=== PATIENT | female | born 2000 | race Hispanic/Latino ===

== ENCOUNTER 2020-03-18 14:58 | Emergency (ER) | payer SELFPAY ==
--- NOTE | 2020-03-18 15:46 | EDPHYS ---
Physician Documentation [facility] Name: Rainer Luna Age: 20 yrs Sex: Female : 2000 Arrival Date: 03/18/2020 Time: 15:02 Bed 25 Private MD: ED Physician Kvng Stevenson HPI: 03/18 15:42 This 20 yrs old Female presents to ER via Ambulatory with complaints of jmm Laceration To Hand. 15:42 The patient has a laceration occurred at home. Onset: The symptoms/episode jmm began/occurred acutely, just prior to arrival. Associated signs and symptoms: Pertinent negatives: heavy bleeding, loss of consciousness, numbness distal to injury, suspected foreign body. This is a 20 year old female with no chronic medical conditions that presents to the ED with complaints of laceration to her right hand after accidently cutting her hand on a can lid. Denies other injury. . 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 - Social history:: Smoking status: Patient denies any tobacco usage or history of. ROS: 15:42 Constitutional: Negative for fever, chills, and weight loss, Cardiovascular: Negative jmm for chest pain, palpitations, and edema, Respiratory: Negative for shortness of breath, cough, wheezing, and pleuritic chest pain. 15:42 Skin: Positive for laceration(s). 15:42 All other systems are negative. Exam: 15:42 Constitutional: This is a well developed, well nourished patient who is awake, alert, jmm and in no acute distress. Head/Face: atraumatic. Eyes: EOMI, no conjunctival erythema appreciated ENT: Moist Mucus Membranes Neck: Trachea midline, Supple Chest/axilla: Normal chest wall appearance and motion. Cardiovascular: Regular rate and rhythm. No edema appreciated Respiratory: Normal respirations, no respiratory distress appreciated Abdomen/GI: Non distended, soft Back: Normal ROM 15:42 Skin: 2 cm laceration noted to the right hand. 15:42 Neuro: Orientation: is normal, Mentation: is normal, Memory: is normal. Vital Signs: 15:03 BP 131 / 71; Pulse 70; Resp 18; Temp 98.6; Pulse Ox 99% on R/A; Weight 65.77 kg (R); aj1 Height 5 ft. 3 in. (160.02 cm) (R); Pain 5/10; 15:03 Body Mass Index 25.69 (65.77 kg, 160.02 cm) aj1 Laceration: 15:42 Wound Repair of 2cm ( 0.8in ) subcutaneous laceration to heel of right hand. Distal jmm neuro/vascular/tendon intact. Anesthesia: Local anesthetic administered with 2 mls of 1% lidocaine. Wound prep: Moderate cleansing with betadine by me. Skin closed with 4 5-0 Prolene using simple sutures and sterile technique. Patient tolerated well. MDM: 15:15 Patient medically screened. [facility] 15:42 Data reviewed: vital signs, nurses notes. Counseling: I had a detailed discussion with [facility] the patient and/or guardian regarding: the historical points, exam findings, and any diagnostic results supporting the discharge/admit diagnosis, the need for outpatient follow up, to return to the emergency department if symptoms worsen or persist or if there are any questions or concerns that arise at home. ED course: Patient given wound infection return precautions. Patient understood and agrees with the plan of care. . Administered Medications: No medications were administered Disposition: 03/19 06:07 Co-signature as Attending Physician, Kvng Stevenson MD I agree with the assessment and [facility] plan of care. Disposition: 03/18/20 15:45 Discharged to Home. Impression: Laceration of the right hand. - Condition is Stable. - Discharge Instructions: Laceration Care, Adult. - Medication Reconciliation Form, Thank You Letter, Antibiotic Education, Prescription Opioid Use, Work release form form. - Follow up: Private Physician; When: 2 - 3 days; Reason: Recheck today's complaints, Continuance of care, Re-evaluation by your physician. Signatures: Ana Lilia Vaca RN RN aj1 Kvng Stevenson MD MD cha Mickail, Joel, PA PA jmm Williams, Irene, RN RN iw Corrections: (The following items were deleted from the chart) 03/18 16:18 15:45 03/18/2020 15:45 Discharged to Home. Impression: Laceration of the right hand. iw Condition is Stable. Forms are Medication Reconciliation Form, Thank You Letter, Antibiotic Education, Prescription Opioid Use. Follow up: Private Physician; When: 2 - 3 days; Reason: Recheck today's complaints, Continuance of care, Re-evaluation by your physician. shawn
--- NOTE | 2020-03-18 15:46 | ER ---
Nurse's Notes [facility] Name: Rainer Luna Age: 20 yrs Sex: Female : 2000 Arrival Date: 03/18/2020 Time: 15:02 Bed 25 Private MD: Diagnosis: Laceration of the right hand Presentation: 03/18 15:03 Chief complaint: Patient states: She cut her right palm on a aluminum can lid at 1500 aj1 today. Laceration noted to right palm not currently bleeding. Coronavirus screen: Client denies travel out of the [place] in the last 14 days. At this time, the client does not indicate any symptoms associated with coronavirus-19. Ebola Screen: Patient denies travel to an Ebola-affected area in the 21 days before illness onset. Complicating Factors: There are no complicating factors for this patient. Initial Sepsis Screen: Does the patient meet any 2 criteria? No. Patient's initial sepsis screen is negative. Does the patient have a suspected source of infection? No. Patient's initial sepsis screen is negative. Risk Assessment: Do you want to hurt yourself or someone else? Patient reports no desire to harm self or others. Onset of symptoms was March 18, 2020 at 15:00. 15:03 Method Of Arrival: Ambulatory aj1 15:03 Acuity: GEOFFREY 4 aj1 Triage Assessment: 15:10 General: Appears in no apparent distress. comfortable, Behavior is calm, cooperative, aj1 appropriate for age. Pain: Complains of pain in right hand Pain currently is 5 out of 10 on a pain scale. Neuro: Level of Consciousness is awake, alert, obeys commands. Cardiovascular: Patient's skin is warm and dry. Respiratory: Airway is patent Respiratory effort is even, unlabored, Respiratory pattern is regular, symmetrical. Injury Description: Laceration sustained to heel of right hand is bleeding no active bleeding noted. 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 - Social history:: Smoking status: Patient denies any tobacco usage or history of. Screenin:17 Abuse screen: Denies threats or abuse. Denies injuries from another. Nutritional iw screening: No deficits noted. Tuberculosis screening: No symptoms or risk factors identified. Fall Risk None identified. Assessment: 15:30 General: Appears in no apparent distress. Behavior is calm, cooperative. Pain: iw Complains of pain in right hand. Neuro: Level of Consciousness is awake, alert, obeys commands, Oriented to person, place, time, situation, Moves all extremities. Full function. Cardiovascular: Patient's skin is warm and dry. Musculoskeletal: Range of motion: intact in all extremities. Injury Description: Laceration sustained to heel of right hand is 0.5 to 2.5 cm long. Vital Signs: 15:03 BP 131 / 71; Pulse 70; Resp 18; Temp 98.6; Pulse Ox 99% on R/A; Weight 65.77 kg (R); aj1 Height 5 ft. 3 in. (160.02 cm) (R); Pain 5/10; 15:03 Body Mass Index 25.69 (65.77 kg, 160.02 cm) aj1 ED Course: 15:02 Patient arrived in ED. mr 15:10 Triage completed. aj1 15:10 Arm band placed on Patient placed in an exam room. [facility] 15:14 Teto Storey PA is PHCP. [facility] 15:14 Kvng Stevenson MD is Attending Physician. [facility] 16:00 Patient has correct armband on for positive identification. iw 16:10 Assist provider with laceration repair on heel of right hand that was between 2.6 to iw 7.5 cm using sutures. Set up tray. Performed by Teto HARTLEY Patient tolerated well. 16:14 Yadira Haji, AZEB is Primary Nurse. iw 16:17 Patient did not have IV access during this emergency room visit. iw Administered Medications: No medications were administered Outcome: 15:45 Discharge ordered by . [facility] 16:17 Discharged to home ambulatory, with family. iw 16:17 Condition: good 16:17 Discharge instructions given to patient, Instructed on discharge instructions, follow up and referral plans. Demonstrated understanding of instructions, follow-up care, medications. 16:18 Patient left the ED. iw Signatures: Ana Lilia Vaca RN RN aj1 Mickail, TetoODILIA pete Mary mr Yadira Haji, RN RN iw Corrections: (The following items were deleted from the chart) 03/19 07:55 03/18 16:20 Assist provider with laceration repair on heel of right hand that was iw between 2.6 to 7.5 cm using sutures. Set up tray. Performed by Teto HRATLEY Patient tolerated well. iw
[2020-03-18 16:24] VITALS: BP 131/71; TEMP 98.6; O2SAT 99
== END 2020-03-18 16:18 | disposition home or self-care (01) ==
LOC: ER 14:58
PROC: 0JQJ0ZZ Repair Right Hand Subcutaneous Tissue and Fascia, Open Approach (ICD-10-PCS; principal; 2020-03-18)
DX: S61.411A Laceration without foreign body of right hand, initial encounter (principal); W26.8XXA Contact with other sharp object(s), not elsewhere classified, initial encounter; Y93.9 Activity, unspecified; Y92.009 Unspecified place in unspecified non-institutional (private) residence as the place of occurrence of the external cause
CPT/HCPCS: 99283

== ENCOUNTER 2020-04-03 18:31 | Emergency (ER) | payer SELFPAY ==
--- NOTE | 2020-04-03 18:52 | ER ---
Nurse's Notes [facility] Name: Rainer Luna Age: 20 yrs Sex: Female : 2000 Arrival Date: 04/03/2020 Time: 18:33 Bed Waiting Private MD: Diagnosis: Encounter for removal of sutures Presentation: 04/03 18:36 Chief complaint: Patient states: Here for suture removal from palm of right hand. No ll1 fever, redness, or drainage. Coronavirus screen: Client denies travel out of the [place] in the last 14 days. At this time, the client does not indicate any symptoms associated with coronavirus-19. Ebola Screen: Patient denies travel to an Ebola-affected area in the 21 days before illness onset. Initial Sepsis Screen: Does the patient meet any 2 criteria? No. Patient's initial sepsis screen is negative. Does the patient have a suspected source of infection? Yes: Skin breakdown/wound. Risk Assessment: Do you want to hurt yourself or someone else? Patient reports no desire to harm self or others. Onset of symptoms was March 27, 2020. 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 - Social history:: Smoking status: Patient denies any tobacco usage or history of. Screenin:39 Abuse screen: Denies threats or abuse. Nutritional screening: No deficits noted. ll1 Tuberculosis screening: No symptoms or risk factors identified. Fall Risk None identified. Total Porter Fall Scale indicates No Risk (0-24 pts). Assessment: 18:39 General: Appears in no apparent distress. Behavior is calm, cooperative, appropriate ll1 for age. General: here for suture removal right hand.. Pain: Denies pain. Vital Signs: 18:36 BP 105 / 72; Pulse 62; Resp 16; Temp 97.8; Pulse Ox 97% ; Pain 0/10; ll1 ED Course: 18:33 Patient arrived in ED. ag5 18:33 Kvng Torres PA is PHCP. cp 18:33 Pk Schwarz MD is Attending Physician. cp 18:37 Triage completed. ll1 18:38 Arm band placed on. ll1 18:38 Removal of removed by Vernon Torres. steri strips placed. Tolerated procedure well. ll1 18:39 No provider procedures requiring assistance completed. Patient did not have IV access ll1 during this emergency room visit. 18:40 Patient has correct armband on for positive identification. Bed in low position. Call ll1 light in reach. Side rails up X 1. Cardiac monitoring not applicable on this patient. Administered Medications: No medications were administered Outcome: 18:40 Discharged to home ambulatory. ll1 18:40 Condition: stable 18:40 Discharge instructions given to patient, Instructed on discharge instructions, follow up and referral plans. wound care, Demonstrated understanding of instructions, follow-up care, wound care. 18:51 Discharge ordered by . cp 19:02 Patient left the ED. ll1 Signatures: Kvng Torres PA PA cp Gaskin, Ajare ag5 Candi Cordova, RN RN ll1
--- NOTE | 2020-04-03 18:52 | EDPHYS ---
Physician Documentation [facility] Name: Rainer Luna Age: 20 yrs Sex: Female : 2000 Arrival Date: 04/03/2020 Time: 18:33 Bed Waiting Private MD: ED Physician Pk Schwarz HPI: 04/03 18:41 This 20 yrs old Female presents to ER via Ambulatory with complaints of Suture cp Removal. 18:41 The patient has sutures on the carlson side of right hand. Previous treatment: The cp patient was initially treated on March 18, 2020, the care was rendered at [facility], Treatment type: The patient's original treatment included sutures. Sutures/tracey progress: The patient has no c/o's. The wound is well-healing with no redness, swelling, discharge, or dehiscence reported. 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 - Social history:: Smoking status: Patient denies any tobacco usage or history of. ROS: 18:42 All other systems are negative. cp Exam: 18:42 Musculoskeletal/extremity: Extremities: grossly normal except: noted in the carlson side cp right hand: repaired laceration. 18:43 Skin: Wound recheck: Suture laceration closure: the wound is healing well, the edges cp are well approximated, no evidence of dehiscence, no drainage, no erythema, no swelling. Vital Signs: 18:36 BP 105 / 72; Pulse 62; Resp 16; Temp 97.8; Pulse Ox 97% ; Pain 0/10; ll1 MDM: 18:51 Patient medically screened. cp 18:51 Data reviewed: vital signs, nurses notes, and as a result, I will discharge patient. cp 18:51 Counseling: I had a detailed discussion with the patient and/or guardian regarding: the cp historical points, exam findings, and any diagnostic results supporting the discharge/admit diagnosis, to return to the emergency department if symptoms worsen or persist or if there are any questions or concerns that arise at home. Response to treatment: the patient's symptoms have markedly improved after treatment, and as a result, I will discharge patient. Administered Medications: No medications were administered Disposition: 19:05 Chart complete. cp 04/04 06:58 Co-signature as Attending Physician, Pk Schwarz MD. rn Disposition: 04/03/20 18:51 Discharged to Home. Impression: Encounter for removal of sutures. - Condition is Stable. - Discharge Instructions: Suture Removal, Care After. - Medication Reconciliation Form, Thank You Letter, Antibiotic Education, Prescription Opioid Use form. - Follow up: Private Physician; When: As needed; Reason: Worsening of condition. - Problem is new. - Symptoms have improved. Signatures: Pk Schwarz MD MD rn Kvng Torres PA PA cp Lewis, Lynsay, RN RN ll1 Corrections: (The following items were deleted from the chart) 04/03 19:02 18:51 04/03/2020 18:51 Discharged to Home. Impression: Encounter for removal of ll1 sutures. Condition is Stable. Forms are Medication Reconciliation Form, Thank You Letter, Antibiotic Education, Prescription Opioid Use. Follow up: Private Physician; When: As needed; Reason: Worsening of condition. Problem is new. Symptoms have improved. cp
[2020-04-03 20:13] VITALS: BP 105/72; TEMP 97.8; O2SAT 97
== END 2020-04-03 19:02 | disposition home or self-care (01) ==
LOC: ER 18:31
DX: Z48.02 Encounter for removal of sutures (principal)
CPT/HCPCS: 99281